=== PATIENT | male | born 1970 | race Caucasian/White ===

== ENCOUNTER 2017-12-15 20:39 | Emergency (ER) | payer OTHER ==
[~2017-12-15] VITALS: Ht 180.3 cm; Wt 124.7 kg
[~2017-12-15 20:39] MED LIST: ATEN25TA PO; FENO145T PO; HYDR-3980; LOSA25TA3 PO; OMEP40CA37 PO
[2017-12-15 20:40] VITALS: BP 140/92
[2017-12-15 21:04] LABS: BILIRUBIN,URINE SMALL (NEGATIVE); BLOOD, URINE Large Ery/uL (NEGATIVE); KETONES,URINE Negative (NEGATIVE); LEUKOCYTE ESTERASE ,URINE Negative (NEGATIVE); NITRITE, URINE Positive (NEGATIVE); PH,URINE 5.5 (5.0-8.0); PROTEIN,URINE >=300 mg/dl (NEGATIVE); UGLUCOSE Negative (NEGATIVE); UROBILINOGEN,URINE 0.2 EU/dL (0.2)
[2017-12-15 21:05] LABS: APPEARANCE,URINE CLOUDY (CLEAR); COLOR,URINE AMBER (YELLOW)
[2017-12-15 21:06] LABS: BACTERIA,URINE Few /HPF (None Seen); RBC,URINE TOO NUMEROUS TO COUN /HPF (0-2); SQUAMOUS EPITHELIAL CELL,UR Rare /HPF (None Seen)
[2017-12-15 21:07] LABS: HYALINE CASTS, URINE Few /LPF (None Seen)
[2017-12-15] MEDS ORDERED: PHENAZOPYRIDINE HCL 200 MG TABLET ONE (21:28)
[2017-12-15] MEDS ORDERED: CEPHALEXIN MONOHYDRATE 500 MG CAPSULE PO ONE ×2 (21:28→21:30)
[2017-12-15] MEDS ORDERED: PHENAZOPYRIDINE HCL 200 MG TABLET PO ONE (21:30)
== END 2017-12-15 21:51 | disposition home or self-care (01) ==
LOC: ER 20:41
DX: N39.0 Urinary tract infection, site not specified (principal); I10 Essential (primary) hypertension; K21.9 Gastro-esophageal reflux disease without esophagitis; F32.9 Major depressive disorder, single episode, unspecified; E78.00 Pure hypercholesterolemia, unspecified; M19.90 Unspecified osteoarthritis, unspecified site; Z60.2 Problems related to living alone; Z79.899 Other long term (current) drug therapy
CPT/HCPCS: 81001; 87086; 99284; A4606; Z7610; 81000-TC; 87186-TC

== ENCOUNTER 2018-01-21 19:51 | Emergency (ER) | payer OTHER ==
[~2018-01-21] VITALS: Ht 177.8 cm; Wt 136.1 kg
[2018-01-21 20:00] VITALS: BP 126/78
[2018-01-21 20:32] LABS: APPEARANCE,URINE Clear (CLEAR); BILIRUBIN,URINE Negative (NEGATIVE); BLOOD, URINE Trace-intact Ery/uL (NEGATIVE); COLOR,URINE Yellow (YELLOW); KETONES,URINE Negative (NEGATIVE); LEUKOCYTE ESTERASE ,URINE Trace (NEGATIVE); NITRITE, URINE Negative (NEGATIVE); PH,URINE 7.5 (5.0-8.0); PROTEIN,URINE Negative (NEGATIVE); UGLUCOSE Negative (NEGATIVE); UROBILINOGEN,URINE 0.2 EU/dL (0.2)
[2018-01-21 20:32] LABS: BASOPHILS % (AUTO) 0.2 % (0.0-2.0); EOSINOPHILS % (AUTO) 0.2 % (0.0-6.0); HEMATOCRIT 44 % (39-51); HEMOGLOBIN 15.3 g/dL (13.5-17.5); LYMPHOCYTES # (AUTO) 1.5 /CMM (0.8-4.8); LYMPHOCYTES % (AUTO) 9.7 % (20.0-44.0); MEAN CORPUSCULAR HGB CONC 35 g/dl (31.0-36.0); MEAN CORPUSCULAR VOLUME 92 fL (80-96); MONOCYTES # (AUTO) 1.1 /CMM (0.1-1.30); MONOCYTES % (AUTO) 7.3 % (2.0-12.0); NEUTROPHILS # (AUTO) 12.8 /CMM (1.8-8.9); NEUTROPHILS % (AUTO) 82.6 % (43.0-81.0); PLATELET COUNT (AUTO) 239 /CMM (150-450); RDW COEFFICIENT OF VARIATION 11.8 (11.5-15.0); RED BLOOD CELL COUNT(AUTO) 4.75 MIL/uL (4.5-6.0); WHITE BLOOD COUNT (AUTO) 15.4 K/uL (4.3-11.0)
[2018-01-21 20:38] LABS: BACTERIA,URINE Few /HPF (None Seen); RBC,URINE 0-2 /HPF (0-2); SQUAMOUS EPITHELIAL CELL,UR Few /HPF (None Seen)
[2018-01-21 20:41] LABS: CREATININE 0.9 mg/dL (0.6-1.3); POTASSIUM 3.7 mmol/L (3.5-5.1)
[2018-01-21 20:46] LABS: ALBUMIN 4.2 g/dL (3.4-5.0); BILIRUBIN,DIRECT 0.2 mg/dL (0.0-0.2); BILIRUBIN,TOTAL 1.6 mg/dL (0.2-1.0); TOTAL PROTEIN, SERUM 7.4 g/dL (6.4-8.2)
== END 2018-01-21 20:54 | disposition home or self-care (01) ==
LOC: ER 19:55
DX: R30.0 Dysuria (principal); R10.84 Generalized abdominal pain; I10 Essential (primary) hypertension; E78.00 Pure hypercholesterolemia, unspecified; F32.9 Major depressive disorder, single episode, unspecified; Z90.49 Acquired absence of other specified parts of digestive tract; Z98.890 Other specified postprocedural states; F10.10 Alcohol abuse, uncomplicated; Y90.9 Presence of alcohol in blood, level not specified; Z60.2 Problems related to living alone
CPT/HCPCS: 36415; 80048; 80076; 81001; 85025; 87077; 87086; 87186; 99284; A4606; Z7610; 81000-TC

== ENCOUNTER 2018-03-10 23:31 | Emergency (ER) | payer OTHER ==
[~2018-03-10] VITALS: Ht 185.4 cm; Wt 108.9 kg
--- NOTE | 2018-03-11 | NUR ---
Pt came in c/o of pelvic discomfort, bilateral flank pain, scrotal pain, rectal burning on urination. Pt also reports N/V. States his urine was positive for nitrates and hematuria on recent visit to Ed and completed the prescribed Keflex and Cipro PO ATB. Pt also said he received ATB injection last time he was in ED. Pt is A, O4, moves all extremities without difficulty, on RA. Seen by Dr. Felix at , awaiting orders.
--- NOTE | 2018-03-11 00:10 | NUR ---
Pt ambulated to the BR, urine sample collected and sent to lab.
[2018-03-11 00:37] LABS: APPEARANCE,URINE CLOUDY (CLEAR); BILIRUBIN,URINE NEGATIVE (NEGATIVE); BLOOD, URINE MODERATE Ery/uL (NEGATIVE); COLOR,URINE YELLOW (YELLOW); KETONES,URINE NEGATIVE (NEGATIVE); LEUKOCYTE ESTERASE ,URINE MODERATE (NEGATIVE); NITRITE, URINE NEGATIVE (NEGATIVE); PROTEIN,URINE NEGATIVE (NEGATIVE); UGLUCOSE NEGATIVE (NEGATIVE); UROBILINOGEN,URINE 0.2 EU/dL (0.2)
[2018-03-11 00:38] LABS: BACTERIA,URINE Few /HPF (None Seen); SQUAMOUS EPITHELIAL CELL,UR Rare /HPF (None Seen); WBC,URINE TOO NUMEROUS TO COUN /HPF (0-3)
--- NOTE | 2018-03-11 00:55 | NUR ---
Pt resting comfortably in bed, awaiting prescription.
--- NOTE | 2018-03-11 01:00 | NUR ---
Patient discharged to home in stable condition. Written and verbal after care instructions and prescriptions given. Patient verbalizes understanding of instruction. Pt ambulatory with a steady gait.
[2018-03-11 01:01] VITALS: BP 136/74
== END 2018-03-11 01:04 | disposition home or self-care (01) ==
LOC: ER 23:35
DX: N39.0 Urinary tract infection, site not specified (principal); I10 Essential (primary) hypertension; K21.9 Gastro-esophageal reflux disease without esophagitis; F32.9 Major depressive disorder, single episode, unspecified; F41.9 Anxiety disorder, unspecified; E78.00 Pure hypercholesterolemia, unspecified; F10.10 Alcohol abuse, uncomplicated; Y90.9 Presence of alcohol in blood, level not specified; Z98.890 Other specified postprocedural states
CPT/HCPCS: 81001; 87077; 87086; 87186; 99283; A4606 ×2; Z7610; 81000-TC

== ENCOUNTER 2018-04-09 21:54 | Emergency (ER) | payer OTHER ==
[~2018-04-09] VITALS: Ht 185.4 cm; Wt 136.1 kg
--- NOTE | 2018-04-09 22:00 | NUR ---
PT BIBSELF FROM HOME, C/O ABD PAIN WITH N/V/D AND DYSURIA, C/O HEADACHE AT THIS TIME WELL. PT AAOX4, RESPIRATIONS EVEN AND UNLABORED, NO SOB, NAD NOTED, VSS, ON MONITOR. PENDING ER PROVIDER KATELYN
[2018-04-09] MEDS ORDERED: IV NS 0.9% 1,000 ML BAG IV ONE (23:00)
[2018-04-09] MEDS ORDERED: ACETAMINOPHEN ES 500 MG TABLET PO ONE (23:00)
[2018-04-09] MEDS ORDERED: ONDANSETRON HCL/PF 4 MG/2 ML VIAL IVP ONE (23:00)
[2018-04-09] MEDS ORDERED: ACETAMINOPHEN ES 500 MG TABLET ONE (23:05)
[2018-04-09] MEDS ORDERED: ONDANSETRON HCL/PF 4 MG/2 ML VIAL ONE (23:05)
[2018-04-09 23:13] LABS: BASOPHILS # (AUTO) 0.1 /CMM (0.0-0.2); BASOPHILS % (AUTO) 1.1 % (0.0-2.0); HEMATOCRIT 44 % (39-51); HEMOGLOBIN 15.2 g/dL (13.5-17.5); LYMPHOCYTES % (AUTO) 22.1 % (20.0-44.0); MEAN CORPUSCULAR HGB CONC 34 g/dl (31.0-36.0); MEAN CORPUSCULAR VOLUME 93 fL (80-96); MONOCYTES # (AUTO) 0.8 /CMM (0.1-1.30); MONOCYTES % (AUTO) 9.1 % (2.0-12.0); NEUTROPHILS # (AUTO) 6.1 /CMM (1.8-8.9); NEUTROPHILS % (AUTO) 66.7 % (43.0-81.0); PLATELET COUNT (AUTO) 263 /CMM (150-450); RED BLOOD CELL COUNT(AUTO) 4.77 MIL/uL (4.5-6.0); WHITE BLOOD COUNT (AUTO) 9.2 K/uL (4.3-11.0)
[2018-04-09 23:17] LABS: APPEARANCE,URINE CLEAR (CLEAR); BILIRUBIN,URINE NEGATIVE (NEGATIVE); BLOOD, URINE NEGATIVE Ery/uL (NEGATIVE); COLOR,URINE YELLOW (YELLOW); KETONES,URINE NEGATIVE (NEGATIVE); LEUKOCYTE ESTERASE ,URINE NEGATIVE (NEGATIVE); NITRITE, URINE NEGATIVE (NEGATIVE); PH,URINE 6.5 (5.0-8.0); PROTEIN,URINE NEGATIVE (NEGATIVE); UGLUCOSE NEGATIVE (NEGATIVE); UROBILINOGEN,URINE 0.2 EU/dL (0.2)
[2018-04-09 23:22] LABS: CALCIUM, SERUM 8.4 mg/dL (8.5-10.1); CREATININE 0.9 mg/dL (0.6-1.3); POTASSIUM 3.7 mmol/L (3.5-5.1)
[2018-04-09 23:28] LABS: ALBUMIN 4.1 g/dL (3.4-5.0); BILIRUBIN,DIRECT 0.2 mg/dL (0.0-0.2); TOTAL PROTEIN, SERUM 7.2 g/dL (6.4-8.2)
--- NOTE | 2018-04-10 00:02 | NUR ---
Patient discharged to home in stable condition. Written and verbal after care instructions given. Patient verbalizes understanding of instruction. IV removed. Catheter intact and site benign. Pressure and 4x4 applied to site. No bleeding noted.
[2018-04-10 00:03] VITALS: BP 133/76
== END 2018-04-10 00:04 | disposition home or self-care (01) ==
LOC: ER 22:01
DX: R10.10 Upper abdominal pain, unspecified (principal); R51 Headache; R11.2 Nausea with vomiting, unspecified; I10 Essential (primary) hypertension; K21.9 Gastro-esophageal reflux disease without esophagitis; F32.9 Major depressive disorder, single episode, unspecified; F41.9 Anxiety disorder, unspecified; E78.00 Pure hypercholesterolemia, unspecified; M19.90 Unspecified osteoarthritis, unspecified site; N40.0 Benign prostatic hyperplasia without lower urinary tract symptoms; Z98.890 Other specified postprocedural states; Z79.899 Other long term (current) drug therapy
CPT/HCPCS: 36415; 80048; 80076; 81001; 83690; 85025; 87086; 96361; 96374; 99283; A4606; J2405; J7030; Z7610; 81000-TC

== ENCOUNTER 2021-02-24 02:19 | Emergency (ER) | payer OTHER ==
[~2021-02-24] VITALS: Ht 185.4 cm; Wt 129.3 kg
[~2021-02-24 02:19] MED LIST changes: +OMEP40CA21 PO; -OMEP40CA37 PO
[2021-02-24] MEDS ORDERED: TDAP [DIPH/PERTUSSIS/TET] 0.5 ML VIAL IM ONE ×2 (02:43→03:00)
--- NOTE | 2021-02-24 02:45 | NUR ---
XRAY AT BEDSIDE
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
[2021-02-24] MEDS ORDERED: LIDOCAINE 0.5% HCL 50 ML VIAL ONE (03:02)
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
--- NOTE | 2021-02-24 05:22 | NUR ---
[facility] PAGED FOR CT READ
--- NOTE | 2021-02-24 05:42 | NUR ---
Patient discharged to home in stable condition. Written and verbal after care instructions given. Patient verbalizes understanding of instruction.
[2021-02-24 05:44] VITALS: BP 138/73
== END 2021-02-24 05:44 | disposition home or self-care (01) ==
LOC: EDUNIT# 02:19 → ER 02:21
DX: S67.192A Crushing injury of right middle finger, initial encounter (principal); S61.411A Laceration without foreign body of right hand, initial encounter; I10 Essential (primary) hypertension; K21.9 Gastro-esophageal reflux disease without esophagitis; F32.9 Major depressive disorder, single episode, unspecified; F41.9 Anxiety disorder, unspecified; E78.00 Pure hypercholesterolemia, unspecified; Z98.890 Other specified postprocedural states; Z79.899 Other long term (current) drug therapy; Y08.89XA Assault by other specified means, initial encounter; Y93.89 Activity, other specified; Y92.89 Other specified places as the place of occurrence of the external cause; Y99.8 Other external cause status
CPT/HCPCS: 12001; 73130; 90471; 90715; 99283; A6403; J3490